=== PATIENT | male | born 1965 | race Caucasian/White ===

== ENCOUNTER 2024-07-15 13:12 | Emergency (ER) | payer OTHER, SELFPAY ==
[2024-07-15 13:21] VITALS: BP 153/92; PULSE 60; RESP 16; TEMP 36.4; O2SAT 98; BMI 32.5
--- NOTE | 2024-07-15 13:26 | ED_ITS ---
HPI - General Adult General Chief complaint: Skin/Abscess/Foreign Body Stated complaint: L ring finger lac Time Seen by Provider: 07/15/24 13:26 History of Present Illness HPI narrative: Patient here with crush type injury to left ring finger after a window slammed down on it. 58-year-old man presenting to the emergency department following an injury to his left ring finger. Was attempting to close a large window in an old home and it closed down hard on his distal left 4th finger. He has avulsed the skin or pad of this finger. Admittedly painful but not terribly so. Controlled bleeding. This occurred about 30 minutes prior to arrival here. Has brought the avulsed tissue. Related Data Home Medications ?Medication ?Instructions ?Recorded ?Confirmed levothyroxine .ROUTE 07/15/24 Previous Rx's ?Medication ?Instructions ?Recorded cephalexin 500 mg capsule 500 mg PO TID 5 days #15 caps 07/15/24 hydrocodone 5 mg-acetaminophen 325 1 tab PO Q4-6H PRN pain #6 tabs 07/15/24 mg tablet Allergies Allergy/AdvReac Type Severity Reaction Status Date / Time No Known Drug Allergies Allergy Verified 07/15/24 13:21 Review of Systems Status of ROS: Reports: 6 or more systems reviewed and unremarkable except as noted in History and below Exam Narrative: Exam Narrative: Very pleasant. NAD but favoring his left hand as expected. Removal of gauze placed over the top reveals exposed pad the distal 4th finger on the left. Bleeds readily when manipulated. Appears to have intact flexion extension at all joints. Further exploration later does not reveal visualization of bone. Beyond the avulsion there is a mild flap and small laceration extending another cm proximal on the palmar side. The avulsed tip is soft and mildly blanched. Still moist, supple. Been lightly cleansed prior to my arrival. I place the avulsed tissue back in place anticipating x-ray imaging. On reassessment it does show subsequent bruising. Const: Vital Signs, click to edit/add: Vital Signs - 24 hr 07/15/24 13:21 Temperature 97.5 F L Pulse Rate [Pulse Oximeter] 60 Respiratory Rate 16 Blood Pressure [Ri ght Upper Arm] 153/92 H Pulse Oximetry 98 Oxygen Delivery Me thod Room Air Documenting provider has reviewed patient's vital signs: yes Course Vital Signs Vital signs: Initial Vital Signs Temperature 97.5 F L 07/15/24 13:21 Temperature Source Temporal Artery Scan 07/15/24 13:21 Pulse Rate 60 07/15/24 13:21 Respiratory Rate 16 07/15/24 13:21 Blood Pressure 153/92 H 07/15/24 13:21 Blood Pressure Mean 112 H 07/15/24 13:21 Blood Pressure Position Sitting 07/15/24 13:21 Pulse Oximetry 98 07/15/24 13:21 Oxygen Delivery Method Room Air 07/15/24 13:21 Vital Signs Temperature 97.5 F L 07/15/24 13:21 Pulse Rate 60 07/15/24 13:21 Respiratory Rate 16 07/15/24 13:21 Blood Pressure 153/92 H 07/15/24 13:21 Pulse Oximetry 98 07/15/24 13:21 Oxygen Delivery Method Room Air 07/15/24 13:21 Temperature 97.5 F L 07/15/24 13:21 Pulse Rate 60 07/15/24 13:21 Respiratory Rate 16 07/15/24 13:21 Blood Pressure 153/92 H 07/15/24 13:21 Pulse Oximetry 98 07/15/24 13:21 Oxygen Delivery Method Room Air 07/15/24 13:21 Medical Decision Making MDM Narrative Medical decision making narrative: Will need to evaluate for fracture. Tissue is still soft I am hoping will be able to read here. Would not expect return of sensation in this tip any time soon but he would like to try reattachment if at all possible. Injury does extend into the pad of the finger. Did review x-rays of 4th finger and adjacent digits. I do not see clear fracture. Some subtle linear lucencies on AP view bilateral tuft which I think are more likely vascular channels. Return to further cleanse with normal saline irrigation. Sutured with 6-0 Ethilon. Total length 6 cm. Well adhered. [place] this is visible distally. Pad/tissue flap was replaced within 40 minutes of injury. Antibiotic ointment and Ming wrap applied. Will need to monitor closely for infection. Will be given prophylactic antibiotic as well. See patient discharge plan for further discussion Discharge Plan Discharge Clinical Impression: Amputation of finger tip Patient Disposition: Home, Self-Care Condition: Improved Additional Instructions: Change dressing daily with antibiotic ointment and T[place]a gauze. Use antibiotic ointment for the next 6 days and then to a dry dressing. Can protect for another couple of weeks with the finger Stax splint as dispensed. Once less tender or clearly well-healed probably do not need it. Okay to get wet maybe to gently clean but otherwise avoid soaking until sutures are out. Remove sutures in 10 days. Consider taking 81 mg of aspirin daily over the next 2 weeks Ibuprofen or acetaminophen for pain. Also prescribing small quantity of [place] from [facility]. Otherwise elevate as needed for comfort. Cephalexin as prophylactic antibiotic from [facility]. Prescriptions: New cephalexin 500 mg capsule 500 mg PO TID 5 Days Qty: 15 0RF hydrocodone-acetaminophen 5-325 mg tablet 1 tab PO Q4-6H PRN (Reason: pain) Qty: 6 0RF No Action levothyroxine .ROUTE Follow Up/Referrals: Provider,Not a Local [Primary Care Provider] - Stand Alone Forms: [employer] Info Instructions
--- NOTE | 2024-07-15 13:31 | CRLHL7_ITS ---
For Patients: As a result of the Century Cures Act, medical imaging exams and procedure reports are released immediately into your electronic medical record. You may view this report before your referring provider. If you have questions, please contact your health care provider. Indication: Crush injury. Technique: Three views of the left hand, 4th digit. Comparison: None Findings/Impression: Possible subtle avulsion fracture at the radial aspect of the 4th digit distal phalanx on PA view, however evaluation is limited due to presence of overlying bandaging material on this view. Bandaging material was appropriately removed for subsequent views, where no additional fracture or dislocation is identified. Focal soft tissue swelling is present at the 4th digit distal phalanx tuft. Dictated by Aruna Mariscal MD @ 07/15/2024 2:09:01 PM (Electronically Signed)
== END 2024-07-15 15:15 | disposition home or self-care (01) ==
PROVIDERS: Emergency Provider Family Medicine
DX: S68.115A Complete traumatic metacarpophalangeal amputation of left ring finger, initial encounter (principal); W22.8XXA Striking against or struck by other objects, initial encounter; Y92.009 Unspecified place in unspecified non-institutional (private) residence as the place of occurrence of the external cause
CPT/HCPCS: 12004; 73140; 99283; 99284